=== PATIENT | male | born 1990 | race Native Hawaiian/Other Pacific Islander ===

== ENCOUNTER 2019-10-12 15:11 | Emergency (ER) | payer OTHER ==
[~2019-10-12] VITALS: Ht 182.9 cm; Wt 72.6 kg
[2019-10-12 15:16] VITALS: BP 148/74; TEMP 98.1
== END 2019-10-12 16:40 | disposition home or self-care (01) ==
LOC: ED 15:11
DX: M10.9 Gout, unspecified (principal)
CPT/HCPCS: 96372; 99283; J1885

== ENCOUNTER 2019-11-24 17:29 | Emergency (ER) | payer OTHER ==
[~2019-11-24] VITALS: Ht 180.3 cm; Wt 70.8 kg
[2019-11-24] MEDS ORDERED: COLCHICINE0.6 M1 PO (17:56)
[2019-11-24] MEDS ORDERED: MOBIC15 MG PO (17:56)
[2019-11-24 19:23] VITALS: BP 126/84; TEMP 98
== END 2019-11-24 19:24 | disposition home or self-care (01) ==
LOC: ED 17:29
DX: S46.811A Strain of other muscles, fascia and tendons at shoulder and upper arm level, right arm, initial encounter (principal); Z79.1 Long term (current) use of non-steroidal anti-inflammatories (NSAID); W18.39XA Other fall on same level, initial encounter; Y92.89 Other specified places as the place of occurrence of the external cause
CPT/HCPCS: 96372; 99283; J1885

== ENCOUNTER 2020-01-19 15:42 | Emergency (ER) | payer OTHER ==
[~2020-01-19] VITALS: Ht 180.3 cm; Wt 70.8 kg
[~2020-01-19 15:42] MED LIST: COLCHICINE0.6 M1 PO; MOBIC15 MG PO
[2020-01-19 15:54] VITALS: TEMP 99.8
[2020-01-19 16:50] VITALS: BP 145/88
== END 2020-01-19 16:50 | disposition home or self-care (01) ==
LOC: ED 15:42
DX: K04.7 Periapical abscess without sinus (principal); L03.211 Cellulitis of face; F17.210 Nicotine dependence, cigarettes, uncomplicated
CPT/HCPCS: 96372; 99283; J0696; J1885

== ENCOUNTER 2021-06-29 13:34 | Emergency (ER) | payer OTHER ==
[~2021-06-29] VITALS: Ht 180.3 cm; Wt 70.8 kg
[2021-06-29 13:42] VITALS: BP 136/92; TEMP 97.1
== END 2021-06-29 14:36 | disposition home or self-care (01) ==
LOC: ED 13:34
DX: K04.01 Reversible pulpitis (principal)
CPT/HCPCS: 99282

== ENCOUNTER 2021-09-15 08:03 | Emergency (ER) | payer OTHER ==
[~2021-09-15] VITALS: Ht 180.3 cm; Wt 70.8 kg
[2021-09-15 08:08] VITALS: TEMP 97.1
[2021-09-15 08:54] VITALS: BP 126/82
== END 2021-09-15 08:55 | disposition home or self-care (01) ==
LOC: ED 08:03
DX: S92.411A Displaced fracture of proximal phalanx of right great toe, initial encounter for closed fracture (principal); M79.671 Pain in right foot; X58.XXXA Exposure to other specified factors, initial encounter; Y92.89 Other specified places as the place of occurrence of the external cause
CPT/HCPCS: 96372; 99283; J1885

== ENCOUNTER 2021-12-18 16:58 | Emergency (ER) | payer OTHER ==
[~2021-12-18] VITALS: Ht 180.3 cm; Wt 70.8 kg
[2021-12-18 17:05] VITALS: TEMP 98.2
[2021-12-18 17:46] VITALS: BP 168/72
== END 2021-12-18 17:58 | disposition home or self-care (01) ==
LOC: ED 16:58
DX: K04.7 Periapical abscess without sinus (principal)
CPT/HCPCS: 96372; 99283; J0696; J1885; J2270